=== PATIENT | female | born 2000 | race African-American/Black ===

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

== ENCOUNTER 2021-04-03 20:07 | Emergency (ER) | payer OTHER ==
[2021-04-03 20:45] VITALS: BP 111/76; PULSE 87; TEMP 98.7; BMI 21.1
[2021-04-03] MEDS ORDERED: KETOROLAC TROMETHAMINE 15 MG/ML VIAL IM ONE (20:45)
[2021-04-03] MEDS ORDERED: CLINDAMYCIN HCL 300 MG CAPSULE PO ONE (20:46)
[2021-04-03] MEDS ORDERED: CLINDAMYCIN HCL 150 MG CAPSULE (FP) ONE (21:01)
[2021-04-03] MEDS ORDERED: KETOROLAC TROMETHAMINE 30 MG/1 ML VIAL ONE (21:01)
== END 2021-04-03 21:21 | disposition home or self-care (01) ==
LOC: FER 20:07
PROC: 3E023GC Introduction of Other Therapeutic Substance into Muscle, Percutaneous Approach (ICD-10-PCS; principal; 2021-04-03)
DX: J02.9 Acute pharyngitis, unspecified (principal)
CPT/HCPCS: 36415; 86308; 99284-25